=== PATIENT | female | born 2000 | race African-American/Black ===

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

== ENCOUNTER 2023-01-28 09:30 | Outpatient (CLI) | payer OTHER, SELFPAY ==
--- NOTE | ~2023-01-28 | XR_ITS ---
EXAMINATION: XR hand RT min 3V INDICATION: Right hand pain, initial encounter TECHNIQUE: Three views of the right hand are obtained. COMPARISON: None available FINDINGS: There is an acute, traumatic, closed, oblique distal shaft fracture of the fourth metacarpa l. The distal fracture fragment is laterally displaced by one cortical width. No additional fracture is identified. There is soft tissue swelling of the hand. The joint spaces are normal. IMPRESSION: 1. Acute, minimally displaced distal neck fracture of the fourth metacarpal. Reviewed, dictated and finalized at location B.
== END 2023-01-28 09:31 | disposition home or self-care (01) ==
PROVIDERS: Visit Provider Physician Assistant Surgical
DX: S62.334A Displaced fracture of neck of fourth metacarpal bone, right hand, initial encounter for closed fracture (principal); X58.XXXA Exposure to other specified factors, initial encounter
CPT/HCPCS: 73130

== ENCOUNTER 2023-02-28 16:38 | Outpatient (CLI) | payer OTHER, SELFPAY ==
--- NOTE | ~2023-02-28 | XR_ITS ---
EXAM: XR hand RT min 3V DATE: 02/28/2023 16:49 HISTORY: take out of splint right 4th mc fx . COMPARISON: 01/29/2028. FINDINGS: Normal mineralization. Redemonstration of the oblique right fourth metacarpal fracture wit h hyperemia along the fracture lines, an early healing change. No callus. No new acute fracture or di slocation. No lytic or blastic lesion. Joint spaces are maintained. No erosion or periosteal change. Soft tissues within normal limits. IMPRESSION: Early healing change in the mildly displaced oblique right fourth metacarpal fracture, in stable position. Reviewed, dictated and finalized at location K. IMPRESSION: Early healing change in the mildly displaced oblique right fourth m etacarpal fracture, in stable position.
== END 2023-02-28 16:39 | disposition home or self-care (01) ==
PROVIDERS: Visit Provider Plastic Surgery
DX: S62.324D Displaced fracture of shaft of fourth metacarpal bone, right hand, subsequent encounter for fracture with routine healing (principal); X58.XXXD Exposure to other specified factors, subsequent encounter
CPT/HCPCS: 73130

== ENCOUNTER 2023-08-16 21:25 | Emergency (ER) | payer OTHER, SELFPAY ==
[2023-08-16 21:28] VITALS: BP 128/78; PULSE 117; RESP 14; TEMP 37.8; O2SAT 99
[2023-08-16 22:09] VITALS: BP 114/72; PULSE 100; RESP 14; O2SAT 100
[2023-08-16] MEDS: ACETAMINOPHEN 500 MG TABLET 1000 MG PO (22:10)
[2023-08-16] MEDS: IBUPROFEN 600 MG TABLET PO (22:10)
--- NOTE | 2023-08-16 22:16 | ED.URI ---
HPI - URI/Sore Throat General Chief Complaint: Upper Respiratory Infection Stated Complaint: fever flu like symptoms Time Seen by Provider: 08/16/23 21:42 Source: patient Mode of arrival: ambulatory Limitations: no limitations History of Present Illness HPI Narrative: Patient is a 23-year-old female who presents the ED with report of flu-like symptoms. Patient began feeling ill last night. She complains of fevers, chills, body aches, cough, congestion. Reports T-max of 102? F. She has been taking Mucinex with Tylenol for her symptoms. Denies shortness of breath, sore throat, nausea, vomiting. Denies known sick contacts. She is not vaccinated for influenza or covid. Related Data Allergies Allergy/AdvReac Type Severity Reaction Status Date / Time Penicillins AdvReac Unknown Other Verified 08/16/23 21:40 Review of Systems Review of Systems: CONSTITUTIONAL: See HPI. ENT: see HPI. CARDIOVASCULAR: Denies chest pain, palpitations, or edema. RESPIRATORY: See HPI GASTROINTESTINAL: Denies abdominal pain, nausea, vomiting, or diarrhea. MUSCULOSKELETAL: Reports myalgia. All systems reviewed & are unremarkable except as noted in HPI and below [facility] Social History Social History Smoking status: Never smoker Alcohol intake: current Alcohol use details: socially Substance use: never Lack of Transportation: No Lack of Food: Never True Current Housing: I Have Housing Concerned About Future Housing: No Difficulty Paying Gas/Electric Bills: No Difficulty Paying for Meds: No Currently Unemployed: No Education: High School Diploma/GED Difficulty w/ Childcare or Family Care: No Living arrangements: with roommate(s) Exam Narrative: GENERAL: Well appearing, well-nourished, non-toxic, in no acute distress. HEAD: Normocephalic, atraumatic. RESPIRATORY: Airway patent, respirations nonlabored. Clear to auscultation bilaterally, no rales, rhonchi, wheezing. no focal lung sounds. CARDIOVASCULAR: Borderline tachycardic with regular rhythm without murmurs, rubs, or gallops. MUSCULOSKELETAL: Moves all extremities. No gross deformities. SKIN: Warm, dry, normal color. NEURO: A&O X3. Speech clear. PSYCHIATRIC: Appropriate mood and affect. Normal interaction. Course Vital Signs Vital signs: Vital Signs Temperature 100.0 F H 08/16/23 21:28 Pulse Rate 117 H 08/16/23 21:28 Respiratory Rate 14 08/16/23 21:28 Blood Pressure 128/78 08/16/23 21:28 Pulse Oximetry 99 08/16/23 21:28 Oxygen Delivery Room Air 08/16/23 21:28 Temperature 100.0 F H 08/16/23 21:28 Pulse Rate 100 08/16/23 22:09 Respiratory Rate 14 08/16/23 22:09 Blood Pressure 114/72 08/16/23 22:09 Pulse Oximetry 100 08/16/23 22:09 Oxygen Delivery Room Air 08/16/23 21:38 MDM - URI/Sore Throat MDM Narrative Medical decision making narrative: Patient presented to ED with flu-like symptoms that began last night. She is mildly tachycardic and borderline febrile upon arrival. Given Tylenol and ibuprofen in the ED. Influenza A testing positive. This does fit with clinical picture. Patient will be discharged. Discussed supportive therapy. Discussed return precautions. She is in agreement plan. Discharged in stable condition. Medical Records Attestation: I reviewed the patient's medical records. Lab Data Labs: Lab Results 08/16/23 Range/Units 21:42 Influenza A (RT-PCR) Positive A (Negative) Influenza B (RT-PCR) Negative (Negative) RSV (RT-PCR) Negative (Negative) SARS-CoV-2 RNA (RT-PCR) Negative (Negative) Discharge Plan Discharge Clinical Impression: Influenza A Patient Disposition: Home, Self-Care Condition: Stable Instructions: Antibiotic Form, Influenza (ED), Cold Symptoms (ED) Additional Instructions: You were diagnosed with Influenza A today. Isolate at home as you are contagious.
[2023-08-16 22:27] LABS: Influenza A QL RT-PCR Positive (Negative); Influenza B QL RT-PCR Negative (Negative); RSV RNA, RT-PCR Negative (Negative); SARS-CoV-2 RNA PCR Negative (Negative)
== END 2023-08-16 22:45 | disposition home or self-care (01) ==
LOC: ANHED 22:36
PROVIDERS: Emergency Medicine; Emergency Provider Physician Assistant
DX: J10.1 Influenza due to other identified influenza virus with other respiratory manifestations (principal); Z20.822 Contact with and (suspected) exposure to COVID-19
CPT/HCPCS: 87637; 99283; A9270